=== PATIENT | male | born 1990 | race Caucasian/White ===

== ENCOUNTER 2023-11-26 04:59 | Emergency (ER) | payer OTHER ==
[~2023-11-26] VITALS: Ht 170.2 cm; Wt 90.7 kg
[2023-11-26 05:15] VITALS: BP_SYST 110; PULSE 101; RESP 16; TEMP 98; O2SAT 95
== END 2023-11-26 05:23 ==
LOC: SED 04:59
DX: Z02.83 Encounter for blood-alcohol and blood-drug test (principal)

== ENCOUNTER 2023-11-26 06:24 | Emergency (ER) | payer SELFPAY ==
[~2023-11-26] VITALS: Ht 172.7 cm; Wt 108.9 kg
[2023-11-26 06:38] VITALS: BP_SYST 117; PULSE 86; RESP 16; TEMP 97.7; O2SAT 95
[2023-11-26 08:02] VITALS: BP_SYST 140; PULSE 80; RESP 20; TEMP 97.4; O2SAT 100
== END 2023-11-26 08:05 ==
LOC: SED 06:24
DX: F10.20 Alcohol dependence, uncomplicated (principal); F17.200 Nicotine dependence, unspecified, uncomplicated; Y90.6 Blood alcohol level of 120-199 mg/100 ml
CPT/HCPCS: 99283; 36415; G0482